=== PATIENT | male | born 1975 ===

== ENCOUNTER 2021-08-12 10:07 | Emergency (ER) | payer BC ==
[~2021-08-12] VITALS: Ht 170.2 cm; Wt 77.1 kg
== END 2021-08-12 11:53 | disposition home or self-care (01) ==
LOC: ER 10:39
DX: M25.512 Pain in left shoulder (principal); Y93.84 Activity, sleeping; Y92.003 Bedroom of unspecified non-institutional (private) residence as the place of occurrence of the external cause
CPT/HCPCS: 99283

== ENCOUNTER 2021-08-28 10:56 | Emergency (ER) | payer BC ==
[~2021-08-28] VITALS: Ht 170.2 cm; Wt 77.1 kg
== END 2021-08-28 11:45 | disposition home or self-care (01) ==
LOC: ER 11:35
DX: S01.81XA Laceration without foreign body of other part of head, initial encounter (principal); Y08.89XA Assault by other specified means, initial encounter; Y92.008 Other place in unspecified non-institutional (private) residence as the place of occurrence of the external cause
CPT/HCPCS: 99283